=== PATIENT | female | born 1975 | race Caucasian/White ===

== ENCOUNTER 2021-05-17 10:56 | Emergency (ER) | payer BC, MEDICAID ==
[~2021-05-17] VITALS: Ht 165.1 cm; Wt 72.7 kg
[2021-05-17 11:01] VITALS: BP 152/98
--- NOTE | 2021-05-17 11:37 | RAD ---
EXAM: Head CT without contrast. HISTORY: Headache. TECHNIQUE: Computed tomographic images of the head were obtained without contrast. *One or more of the following individualized dose reduction techniques were utilized for this examina tion: 1. Automated exposure control. 2. Adjustment of the mA and/or kV according to patient size. 3. Use of iterative reconstruction technique. COMPARISON: None. FINDINGS: There is no acute or subacute extra-axial or intraparenchymal hemorrhage. There is no mass effect or midline shift. There is no hydrocephalus. The johnson-white matter differentiation pattern is intact. The visualized portions of the orbits, paranasal sinuses and mastoid air cells are unremarkable. No s uspicious calvarial lesion is seen. The foramen magnum is partially excluded from the [id number]. IMPRESSION: No acute intracranial findings. Electronically signed by: Pauline Mota MD (05/17/2021 11:34 AM) [id number]
[2021-05-17] MEDS ORDERED: ACETAMINOPHEN 500 MG TABLET PO ONE (12:50)
--- NOTE | 2021-05-17 12:55 | PHYS DOC ---
Past History Past Surgical History: Appendectomy, Cholecystectomy, Hysterectomy Additional Past Surgical Histo: c-sect Adult General Chief Complaint Chief Complaint: NEURO SYMPTOMS/DEFICITS HPI HPI Patient is a 46-year-old female presenting for headache. Reports onset was this morning without any known trauma, inciting event, exposure or other known exposures. Nothing known makes better. Nothing known makes worse. Pain described as focal to right forehead and throbbing, also reports that it radi ates at times to the back of her neck on the right side. Timing of symptoms has been constant since onset. She reports several hours after onset, having subjective bilateral upper extremity numbness and paresthesias. She is concerned as her sister recently had a stroke and also concerned that some people with Covid presents with symptoms such as headache prompting her to come in for evaluation. Only other associated symptoms include bilateral ear fullness. No fever, neck stiffness, chest pain, shortness of breath, abdominal pain, other changes in motor or sensory or neuro function. She is otherwise healthy without any known medical issues, does not take any medications on a daily basis, is not vaccinated against COVID-19 Review of Systems Review of Systems Fourteen body systems of review of systems have been reviewed. See HPI for pertinent positives and negative responses, other brambila all other systems are negative, non-pertinent or non-contributory Current Medications Current Medications Current Medications Medications (Trade) Dose Ordered Sig/Edgardo Start Time Stop Time Status Last Admin Dose Admin Acetaminophen (Tylenol) 500 mg STK-MED ONCE 05/17/21 12:50 05/17/21 12:50 DC Allergies Allergies Allergies Coded Allergies Type Severity Reaction Last Updated Verified codeine Allergy Unknown 05/17/21 Yes Physical Exam Physical Exam Constitutional: Pt is oriented to person, place, and time. Pt appears well-developed and well-nourished. HEENT: Head: Normocephalic and atraumatic. TMs clear, no hemotympanum Conjunctivae and EOM are normal. Pupils are equal, round, and reactive to light. Oropharynx is clear and moist. Postnasal drip present No hematomas or lacerations or abrasions to face or scalp OP clear, no blood, no malocclusion, dentition intact Nares clear, no nasal septal hematoma Midface stable Neck: C-spine midline nontender, no step-offs. Right trapezius tight and tender to palpation as are bilateral paracervical muscles Cardiovascular: Normal rate, regular rhythm and normal heart sounds. Pulmonary/Chest: Effort normal and breath sounds normal. No respiratory distress. No wheezes. CTA bilaterally Abdominal: Soft. Bowel sounds are normal. Pt exhibits no distension. There is no tenderness. Musculoskeletal: No bony tenderness to extremities, no deformities, full ROM extremities Chest wall stable Pelvis stable and non-tender No vertebral TTP and spine without stepoffs Neurological: Pt is alert and oriented to person, place, and time. Moving all extremities willfully, able to wiggle all fingers and toes Alert and oriented x 3 Motor and sensory function intact bilaterally Cranial nerves II through XII intact NIH stroke scale 0 Skin: Skin is warm and dry. No abrasions, no lacerations Psychiatric: Anxious affect and mood Current Patient Data Vital Signs Vital Signs Date Time Temp Pulse Resp B/P (MAP) Pulse Ox O2 Delivery O2 Flow Rate FiO2 05/17/21 11:01 98.1 95 24 152/98 95 Room Air EKG EKG [] Radiology/Procedures Radiology/Procedures EXAM: Head CT without contrast. HISTORY: Headache. TECHNIQUE: Computed tomographic images of the head were obtained without contrast. *One or more of the following individualized dose reduction techniques were utilized for this examination: 1. Automated exposure control. 2. Adjustment of the mA and/or kV according to patient size. 3. Use of iterative reconstruction technique. COMPARISON: None. FINDINGS: There is no acute or subacute extra-axial or intraparenchymal hemorrhage. There is no mass effect or midline shift. There is no hydrocephalus. The johnson-white matter differentiation pattern is intact. The visualized portions of the orbits, paranasal sinuses and mastoid air cells are unremarkable. No suspicious calvarial lesion is seen. The foramen magnum is partially excluded from the [id number]. IMPRESSION: No acute intracranial findings. Electronically signed by: Pauline Mota MD (05/17/2021 11:34 AM) [id number] Heart Score C/O Chest Pain: No Risk Factors: Risk Factors: DM, Current or recent (<one month) smoker, HTN, HLP, family history of CAD, obesity. Risk Scores: Risk Factors: DM, Current or recent (<one month) smoker, HTN, HLP, family history of CAD, obesity. Course & Med Decision Making Course & Med Decision Making ABCs unremarkable. I disclosed entirety of ER findings and discussed most likely diagnosis of likely self-limiting tension versus sinus headache. Patient appearance concerning for viral picture, joint decision made to test for COVID- 19 given unvaccinated status. Other diagnoses were discussed with patient such as stroke, TIA, cluster headache, meningitis but all deemed less likely causes of patient's presentation. I recommended placement of IV for further diagnostic work-up and intervention as necessary but patient deferred stating that she t hinks her nerves/anxiety worsened her presenting symptoms. As such, plan of care discussed at length with need for close outpatient follow-up to review today's ER visit stressed. Strict return precautions were also discussed at length with good understanding by patient. Patient voiced understanding and agreement with the plan. Patient knows to come back for repeat evaluation if co ncerning signs or symptoms present prior to outpatient follow-up. Hemodynamically stable, ambulatory and well-appearing at time of disposition. Dragon Disclaimer Dragon Disclaimer This electronic medical record was generated, in whole or in part, using a voice recognition dictation system. Departure Departure: Impression: Primary Impression: Headache Additional Impressions: Viral syndrome Person under investigation for COVID-19 Disposition: HOME / SELF CARE / HOMELESS Condition: STABLE Referrals: CATRACHITO BARAJAS MD (PCP) Additional Instructions: You were seen for headache, postnasal drip, ear pressure, and possible infection with COVID-19. Your physical exam was reassuring. Your CT head imaging was normal. We tested you for COVID-19 but this test does not come back for 1 to 2 days. In the meantime you need to quarantine yourself at home away from all other individuals, especially those who are elderly or have any other chronic health issues or an immunocompromised status. You should return to the ED if you develop worsening cough, shortness of breath, chest pain, or any other new or concerning symptoms. Alternate Tylenol and ibuprofen as needed for body ac hes and pain. If your test does come back positive you need to quarantine yourself for 10 days until symptom-free. You should make sure to drink plenty of fluids and get plenty of rest. Problem Qualifiers WALDO JUAREZ DO May 17, 2021 12:55
== END 2021-05-17 13:30 | disposition home or self-care (01) ==
LOC: ER 10:56
DX: R51.9 Headache, unspecified (principal); B34.9 Viral infection, unspecified; Z20.822 Contact with and (suspected) exposure to COVID-19; Z88.5 Allergy status to narcotic agent; Z90.49 Acquired absence of other specified parts of digestive tract; Z90.710 Acquired absence of both cervix and uterus
CPT/HCPCS: 70450; 99284; C9803; U0003